=== PATIENT | male | born 1960 | race Caucasian/White ===

== ENCOUNTER 2018-04-13 19:31 | Emergency (ER) | payer BC, SELFPAY ==
[2018-04-13 20:15] LABS: #Eosinphils 0.1 thou/uL (0.0-0.7); #Lymphocytes 2.3 thou/uL (1.20-3.40); #Monocytes 0.5 thou/uL (0.11-0.59); #Neutrophils 2.8 thou/uL (1.40-6.50); %Basophils 0.7 % (0.0-1.0); %Eosinophils 1.5 % (0.0-10.0); %Monocytes 8.3 % (0.0-10.0); %Neutrophils 49.5 % (42.0-75.0); Mean Corpuscular HGB CONC 32.8 g/dL (32.0-36.0); Mean Corpuscular Hemoglobin 29.4 pg (27.0-31.0); Mean Corpuscular Volume 89.5 fL (78.0-98.0); Mean Platelet Volume 6.5 fL (7.4-10.4); Platelet Count 283 thou/uL (130-400); RBC Distribution Width 13.5 % (11.5-14.5); Red Blood Cell (RBC) Count 4.75 mill/uL (4.70-6.10); White Blood Cell (WBC) Count 5.7 thou/uL (4.8-10.8)
[2018-04-13 20:37] LABS: ALT (SGPT) 62 U/L (8-55); AST (SGOT) 68 U/L (5-34); Albumin 4.3 g/dL (3.5-5.0); Alkaline Phosphatase 107 U/L (40-150); Anion Gap 15 mmol/L (10-20); BUN (Urea Nitrogen) 8 mg/dL (8.4-25.7); Bilirubin, Total 0.4 mg/dL (0.2-1.2); CRP (Inflammatory) 0.51 mg/dL (= or < 0.5); Calc. Creatinine Clearance 0 mL/min (70-130); Calcium 10.3 mg/dL (7.8-10.44); Carbon Dioxide 26 mmol/L (22-29); Chloride 93 mmol/L (98-107); Estimated GFR-MDRD 89; Globulin 4.4 g/dL (2.4-3.5); Glucose 98 mg/dL (70-105); Potassium 3.6 mmol/L (3.5-5.1); Protein, Total 8.7 g/dL (6.0-8.3); Sodium 130 mmol/L (136-145)
[2018-04-13] MEDS ORDERED: Ketorolac Tromethamine 30 MG/ML VIAL ONE (21:04)
== END 2018-04-13 22:24 | disposition left against medical advice (07) ==
LOC: ERS 19:31
DX: M79.604 Pain in right leg (principal); F17.210 Nicotine dependence, cigarettes, uncomplicated
CPT/HCPCS: 36415; 80053; 84550; 85025; 85652; 86140; 87040; 96372; J1885

== ENCOUNTER 2018-05-12 02:45 | Emergency (ER) | payer BC, OTHER ==
[2018-05-12 03:24] LABS: #Basophils 0.1 thou/uL (0.0-0.2); #Eosinphils 0.1 thou/uL (0.0-0.7); #Lymphocytes 2.3 thou/uL (1.20-3.40); #Neutrophils 3.4 thou/uL (1.40-6.50); %Eosinophils 0.8 % (0.0-10.0); %Lymphocytes 33.6 % (21.0-51.0); %Monocytes 14.5 % (0.0-10.0); %Neutrophils 50.1 % (42.0-75.0); Hemoglobin 14.3 g/dL (14.0-18.0); Mean Corpuscular HGB CONC 34.3 g/dL (32.0-36.0); Mean Corpuscular Hemoglobin 29.9 pg (27.0-31.0); Mean Corpuscular Volume 87.2 fL (78.0-98.0); Platelet Count 243 thou/uL (130-400); RBC Distribution Width 13.5 % (11.5-14.5); Red Blood Cell (RBC) Count 4.78 mill/uL (4.70-6.10); White Blood Cell (WBC) Count 6.8 thou/uL (4.8-10.8)
[2018-05-12 03:46] LABS: ALT (SGPT) 116 U/L (8-55); AST (SGOT) 129 U/L (5-34); Albumin 4.2 g/dL (3.5-5.0); Alkaline Phosphatase 136 U/L (40-150); Anion Gap 16 mmol/L (10-20); BUN (Urea Nitrogen) 21 mg/dL (8.4-25.7); Bilirubin, Total 0.8 mg/dL (0.2-1.2); CRP (Inflammatory) 0.95 mg/dL (= or < 0.5); Calc. Creatinine Clearance 0 mL/min (70-130); Calcium 10.3 mg/dL (7.8-10.44); Carbon Dioxide 23 mmol/L (22-29); Chloride 101 mmol/L (98-107); Estimated GFR-MDRD 42; Globulin 4.5 g/dL (2.4-3.5); Glucose 92 mg/dL (70-105); Potassium 4.1 mmol/L (3.5-5.1); Protein, Total 8.7 g/dL (6.0-8.3); Sodium 136 mmol/L (136-145)
--- NOTE | 2018-05-12 07:50 | RAD ---
FXR Knee Rt 4 View STANDARD: 05/12/2018 3:24 AM CLINICAL INDICATION: Pain and edema COMPARISON: None. FINDINGS: Fracture:No acute fracture visualized Arthropathy:Prominent arthropathy is present. There are areas of heterotopic increased density about joint space prosthesis. Indwelling metallic screw is present at the distal femur. There is soft tissu e prominence and joint capsular distention. Incidental findings:Soft tissue calcification IMPRESSION: No discrete evidence of acute fracture Postoperative right knee, with heterotopic density, predominan tly confining to the bursa.
== END 2018-05-12 05:00 | disposition home or self-care (01) ==
LOC: ERS 02:45
DX: M25.561 Pain in right knee (principal); F17.210 Nicotine dependence, cigarettes, uncomplicated; Z87.442 Personal history of urinary calculi; Z79.899 Other long term (current) drug therapy
CPT/HCPCS: 36415; 80053; 85025; 85652; 86140

== ENCOUNTER 2018-05-27 00:29 | Emergency (ER) | payer OTHER ==
[2018-05-27 01:16] LABS: #Basophils 0.1 thou/uL (0.0-0.2); #Eosinphils 0.1 thou/uL (0.0-0.7); #Monocytes 0.6 thou/uL (0.11-0.59); #Neutrophils 3.1 thou/uL (1.40-6.50); %Eosinophils 2.2 % (0.0-10.0); %Lymphocytes 33.8 % (21.0-51.0); Hemoglobin 15.4 g/dL (14.0-18.0); Mean Corpuscular HGB CONC 34.2 g/dL (32.0-36.0); Mean Corpuscular Hemoglobin 29.4 pg (27.0-31.0); Mean Corpuscular Volume 85.9 fL (78.0-98.0); Mean Platelet Volume 7.2 fL (7.4-10.4); Platelet Count 216 thou/uL (130-400); RBC Distribution Width 13.4 % (11.5-14.5); Red Blood Cell (RBC) Count 5.24 mill/uL (4.70-6.10); White Blood Cell (WBC) Count 5.8 thou/uL (4.8-10.8)
[2018-05-27 01:36] LABS: Bilirubin Negative (Negative); Blood, Urine Negative (Negative); Clarity CLEAR (Clear); Glucose, Urine (Dipstick) Negative (Negative); Leukocyte Negative (Negative); Nitrite Negative (Negative); Protein, Urine (Dipstick) Negative (Neg-Trace); Specific Gravity, Urine 1.003 (1.002-1.036); Urobilinogen 0.2 mg/dL (0.2-1.0); pH, Urine 5.5 (5.0-9.0)
[2018-05-27 01:36] LABS: ALT (SGPT) 127 U/L (8-55); AST (SGOT) 132 U/L (5-34); Albumin 4.3 g/dL (3.5-5.0); Alkaline Phosphatase 132 U/L (40-150); Anion Gap 15 mmol/L (10-20); BUN (Urea Nitrogen) 15 mg/dL (8.4-25.7); Bilirubin, Total 0.4 mg/dL (0.2-1.2); CK (CPK) 47 U/L (30-200); Calc. Creatinine Clearance 0 mL/min (70-130); Calcium 10.1 mg/dL (7.8-10.44); Carbon Dioxide 23 mmol/L (22-29); Chloride 101 mmol/L (98-107); Estimated GFR-MDRD 86; Globulin 4.7 g/dL (2.4-3.5); Glucose 125 mg/dL (70-105); Potassium 4.3 mmol/L (3.5-5.1); Sodium 135 mmol/L (136-145)
[2018-05-27 01:50] LABS: Amphetamine Not Detected (NotDetected); Barbiturates Screen Not Detected (NotDetected); Benzodiazepine Screen Not Detected (NotDetected); Cocaine Metabolite Screen Not Detected (NotDetected); Medtox Control Line Valid? VALID (VALID); Medtox Reader # READER 4; Methadone Not Detected (NotDetected); Methamphetamine Not Detected (NotDetected); Opiate Screen Not Detected (NotDetected); Oxycodone Screen Not Detected (NotDetected); Phencyclidine (PCP) Not Detected (NotDetected); THC/Cannabinoid Screen Not Detected (NotDetected); Tricyclic Screen Not Detected (NotDetected)
--- NOTE | 2018-05-27 08:18 | CT ---
PRELIMINARY REPORT/[facility]/EMERGENCY AFTER HOURS PROCEDURE: EXAM: CT Head Without Contrast EXAM DATE/TIME: 05/27/2018 12:56 AM CLINICAL HISTORY: 58 years old, male; Pain; Headache not specified; Patient HX: [id number] presents to ED via EMS with C/O hea dache x4.5 hours associated with HTN. TECHNIQUE: Imaging protocol: Axial computed tomography images of the head/brain without contrast. COMPARISON: No relevant prior studies available. FINDINGS: Brain: No intracrainal hemorrhage. No midline shift. The brain parenchyma appears normal for age. Ventricles: No ventriculomegaly. Bones/joints: Unremarkable. No acute fracture. Sinuses: Visualized sinuses are unremarkable. No acute sinusitis. Mastoid air cells: Visualized mastoid air cells are unremarkable. No mastoid effusion. Soft tissues: Unremarkable. IMPRESSION: No acute intracranial abnormality. Thank you for allowing us to participate in the care of your patient. Dictated and Authenticated by: Juan Wilson MD 05/27/2018 1:10 AM Central Time ([place] & [place]) FINAL REPORT EMERGENCY AFTER HOURS CT BRAIN WITHOUT CONTRAST: FINDINGS/IMPRESSION: I agree with the above provided preliminary interpretation from [facility]. No acute intracranial hemorrhag e or mass effect.
== END 2018-05-27 02:07 | disposition home or self-care (01) ==
LOC: ERS 00:29
DX: I10 Essential (primary) hypertension (principal); F17.210 Nicotine dependence, cigarettes, uncomplicated; Z79.899 Other long term (current) drug therapy
CPT/HCPCS: 36415; 70450; 80053; 80306; 81003; 82550; 84484; 85025; 93005

== ENCOUNTER 2018-11-05 03:48 | Emergency (ER) | payer BC, MEDICAID, OTHER ==
[2018-11-05 04:42] LABS: #Basophils 0.1 thou/uL (0.0-0.2); #Eosinphils 0.2 thou/uL (0.0-0.7); #Lymphocytes 2.3 thou/uL (1.20-3.40); #Monocytes 0.6 thou/uL (0.11-0.59); #Neutrophils 3.3 thou/uL (1.40-6.50); %Basophils 0.9 % (0.0-1.0); %Eosinophils 2.4 % (0.0-10.0); %Lymphocytes 35.7 % (21.0-51.0); %Monocytes 9.3 % (0.0-10.0); %Neutrophils 51.7 % (42.0-75.0); Hemoglobin 14.2 g/dL (14.0-18.0); Mean Corpuscular HGB CONC 34.6 g/dL (32.0-36.0); Mean Corpuscular Hemoglobin 30.1 pg (27.0-31.0); Mean Platelet Volume 7.2 fL (7.4-10.4); Platelet Count 223 thou/uL (130-400); RBC Distribution Width 13.7 % (11.5-14.5); Red Blood Cell (RBC) Count 4.72 mill/uL (4.70-6.10); White Blood Cell (WBC) Count 6.4 thou/uL (4.8-10.8)
[2018-11-05 04:44] LABS: Bilirubin Negative (Negative); Blood, Urine Negative (Negative); Clarity Clear (Clear); Glucose, Urine (Dipstick) Normal (Negative); Leukocyte Negative Leu/uL (Negative); Nitrite Negative (Negative); Protein, Urine (Dipstick) Negative (Neg-Trace); Urobilinogen Normal mg/dL (Less than 2)
[2018-11-05 04:56] LABS: Amphetamine Not Detected (NotDetected); Barbiturates Screen Not Detected (NotDetected); Benzodiazepine Screen Not Detected (NotDetected); Cocaine Metabolite Screen Not Detected (NotDetected); Medtox Control Line Valid? VALID (VALID); Medtox Reader # READER 4; Methadone Not Detected (NotDetected); Methamphetamine Not Detected (NotDetected); Opiate Screen Not Detected (NotDetected); Oxycodone Screen Not Detected (NotDetected); Phencyclidine (PCP) Not Detected (NotDetected); THC/Cannabinoid Screen Not Detected (NotDetected); Tricyclic Screen Not Detected (NotDetected)
[2018-11-05 05:00] LABS: Acetaminophen Less than 6.0 mcg/mL (10.0-30.0); Alcohol 163 mg/dL (Less than 10); Salicylate Less than 8.0 mg/dL (15.0-30.0)
[2018-11-05 05:01] LABS: ALT (SGPT) 59 U/L (8-55); AST (SGOT) 63 U/L (5-34); Alkaline Phosphatase 99 U/L (40-110); Anion Gap 16 mmol/L (10-20); BUN (Urea Nitrogen) 8 mg/dL (8.4-25.7); Bilirubin, Total 0.3 mg/dL (0.2-1.2); CK (CPK) 51 U/L (30-200); Calc. Creatinine Clearance 0 mL/min (70-130); Calcium 9.7 mg/dL (7.8-10.44); Carbon Dioxide 22 mmol/L (22-29); Chloride 101 mmol/L (98-107); Estimated GFR-MDRD 82; Globulin 4.3 g/dL (2.4-3.5); Glucose 113 mg/dL (70-105); Potassium 3.7 mmol/L (3.5-5.1); Protein, Total 8.3 g/dL (6.0-8.3); Sodium 135 mmol/L (136-145)
[2018-11-05] MEDS ORDERED: Acetaminophen 500 MG TAB ONE (05:06)
[2018-11-05] MEDS ORDERED: Lisinopril 10 MG TAB PO SCH (07:45)
== END 2018-11-05 12:03 | disposition home or self-care (01) ==
LOC: ERS 03:48
DX: F10.129 Alcohol abuse with intoxication, unspecified (principal); G89.29 Other chronic pain; M25.569 Pain in unspecified knee; F17.210 Nicotine dependence, cigarettes, uncomplicated
CPT/HCPCS: 36415; 80053; 80306; 80307; 81003; 82550; 84443; 85025; 93005

== ENCOUNTER 2018-12-21 01:49 | Emergency (ER) | payer OTHER ==
[2018-12-21 02:19] LABS: #Basophils 0.1 thou/uL (0.0-0.2); #Eosinphils 0.1 thou/uL (0.0-0.7); #Lymphocytes 2.1 thou/uL (1.20-3.40); #Monocytes 0.8 thou/uL (0.11-0.59); #Neutrophils 4.1 thou/uL (1.40-6.50); %Basophils 0.9 % (0.0-1.0); %Eosinophils 1.8 % (0.0-10.0); %Lymphocytes 29.2 % (21.0-51.0); %Monocytes 11.7 % (0.0-10.0); %Neutrophils 56.4 % (42.0-75.0); Hemoglobin 12.8 g/dL (14.0-18.0); Mean Corpuscular HGB CONC 34.4 g/dL (32.0-36.0); Mean Corpuscular Hemoglobin 31.1 pg (27.0-31.0); Mean Corpuscular Volume 90.4 fL (78.0-98.0); Mean Platelet Volume 6.9 fL (7.4-10.4); Platelet Count 232 thou/uL (130-400); RBC Distribution Width 13.4 % (11.5-14.5); White Blood Cell (WBC) Count 7.3 thou/uL (4.8-10.8)
[2018-12-21 02:40] LABS: ALT (SGPT) 90 U/L (8-55); AST (SGOT) 76 U/L (5-34); Albumin 3.7 g/dL (3.5-5.0); Alkaline Phosphatase 100 U/L (40-110); Anion Gap 10 mmol/L (10-20); BUN (Urea Nitrogen) 13 mg/dL (8.4-25.7); Bilirubin, Total 0.6 mg/dL (0.2-1.2); Calc. Creatinine Clearance 0 mL/min (70-130); Calcium 9.5 mg/dL (7.8-10.44); Carbon Dioxide 27 mmol/L (22-29); Chloride 106 mmol/L (98-107); Estimated GFR-MDRD 85; Globulin 3.6 g/dL (2.4-3.5); Glucose 102 mg/dL (70-105); Lipase 41 U/L (8-78); Potassium 4.7 mmol/L (3.5-5.1); Protein, Total 7.3 g/dL (6.0-8.3); Sodium 138 mmol/L (136-145)
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
[2018-12-21] MEDS ORDERED: Iopamidol 370 76% 100 ML VIAL ONE (13:42)
== END 2018-12-21 03:42 | disposition home or self-care (01) ==
LOC: ERS 01:49
DX: K59.00 Constipation, unspecified (principal); I10 Essential (primary) hypertension; F17.210 Nicotine dependence, cigarettes, uncomplicated; Z79.899 Other long term (current) drug therapy
CPT/HCPCS: 36415; 74177; 80053; 83690; 85025; Q9967

== ENCOUNTER 2019-05-21 11:17 | Emergency (ER) | payer OTHER ==
[2019-05-21] MEDS ORDERED: Proparacaine 0.5% Opth 15 ML BOT ONE (11:45)
[2019-05-21] MEDS ORDERED: Fluorescein Opthalmic Strip ONE (11:45)
== END 2019-05-21 12:25 | disposition home or self-care (01) ==
LOC: ERS 11:17
DX: S40.862A Insect bite (nonvenomous) of left upper arm, initial encounter (principal); S40.861A Insect bite (nonvenomous) of right upper arm, initial encounter; S80.862A Insect bite (nonvenomous), left lower leg, initial encounter; S80.861A Insect bite (nonvenomous), right lower leg, initial encounter; S05.01XA Injury of conjunctiva and corneal abrasion without foreign body, right eye, initial encounter; I10 Essential (primary) hypertension; N40.0 Benign prostatic hyperplasia without lower urinary tract symptoms; F17.210 Nicotine dependence, cigarettes, uncomplicated; Z87.442 Personal history of urinary calculi; Z79.899 Other long term (current) drug therapy; W57.XXXA Bitten or stung by nonvenomous insect and other nonvenomous arthropods, initial encounter
CPT/HCPCS: 99282

== ENCOUNTER 2019-05-30 11:13 | Emergency (ER) | payer OTHER | END 2019-05-30 11:32 | disposition home or self-care (01) | LOC: ERS 11:13 | DX: B86 Scabies (principal); I10 Essential (primary) hypertension; F17.210 Nicotine dependence, cigarettes, uncomplicated | CPT/HCPCS: 99281 ==

== ENCOUNTER 2019-06-01 19:41 | Emergency (ER) | payer OTHER | END 2019-06-01 20:54 | LOC: ERS 19:41 | DX: S00.83XA Contusion of other part of head, initial encounter (principal); I10 Essential (primary) hypertension; F17.210 Nicotine dependence, cigarettes, uncomplicated; N40.0 Benign prostatic hyperplasia without lower urinary tract symptoms; Z87.442 Personal history of urinary calculi; Z79.899 Other long term (current) drug therapy; Y04.0XXA Assault by unarmed brawl or fight, initial encounter | CPT/HCPCS: 99283 ==

== ENCOUNTER 2019-07-31 13:32 | Emergency (ER) | payer OTHER ==
[2019-07-31] MEDS ORDERED: hydrOXYzine 25 MG TAB ONE (14:14)
[2019-07-31] MEDS ORDERED: predniSONE 20 MG TAB ONE (14:14)
== END 2019-07-31 14:30 ==
LOC: ERS 13:32
DX: L29.9 Pruritus, unspecified (principal); I10 Essential (primary) hypertension; N40.0 Benign prostatic hyperplasia without lower urinary tract symptoms; F17.210 Nicotine dependence, cigarettes, uncomplicated; Z79.899 Other long term (current) drug therapy; Z87.442 Personal history of urinary calculi
CPT/HCPCS: 99283; J7512

== ENCOUNTER 2019-08-19 23:09 | Inpatient (IN) | payer OTHER ==
[2019-08-20 00:38] LABS: Bilirubin Negative (Negative); Blood, Urine Negative (Negative); Clarity Clear (Clear); Glucose, Urine (Dipstick) Greater than 1000 mg/dL (Negative); Ketone, Urine 20 mg/dL (Negative); Leukocyte Negative Leu/uL (Negative); Nitrite Negative (Negative); Protein, Urine (Dipstick) Negative (Neg-Trace); Urobilinogen Normal mg/dL (Less than 2)
[2019-08-20 00:49] LABS: #Monocytes 0.5 thou/uL (0.11-0.59); #Neutrophils 4.4 thou/uL (1.40-6.50); %Basophils 0.2 % (0.0-1.0); %Eosinophils 0.4 % (0.0-10.0); %Lymphocytes 29.1 % (21.0-51.0); %Monocytes 7.1 % (0.0-10.0); %Neutrophils 63.2 % (42.0-75.0); Mean Corpuscular HGB CONC 35.4 g/dL (32.0-36.0); Mean Corpuscular Hemoglobin 29.4 pg (27.0-31.0); Mean Corpuscular Volume 83.1 fL (78.0-98.0); Mean Platelet Volume 8.1 fL (7.4-10.4); Platelet Count 196 thou/uL (130-400); RBC Distribution Width 11.7 % (11.5-14.5); Red Blood Cell (RBC) Count 5.09 mill/uL (4.70-6.10)
[2019-08-20 01:32] LABS: ALT (SGPT) 187 U/L (8-55); AST (SGOT) 79 U/L (5-34); Albumin 3.7 g/dL (3.5-5.0); Alkaline Phosphatase 179 U/L (40-110); Anion Gap 20 mmol/L (10-20); BUN (Urea Nitrogen) 26 mg/dL (8.4-25.7); Bilirubin, Total 0.4 mg/dL (0.2-1.2); Calc. Creatinine Clearance 0 mL/min (70-130); Calcium 9.7 mg/dL (7.8-10.44); Carbon Dioxide 20 mmol/L (22-29); Chloride 87 mmol/L (98-107); Estimated GFR-MDRD 47; Globulin 3.3 g/dL (2.4-3.5); Magnesium 1.6 mg/dL (1.6-2.6); Potassium 4.7 mmol/L (3.5-5.1); Sodium 122 mmol/L (136-145)
[2019-08-20 01:38] LABS: Glucose 762 mg/dL (70-105)
[2019-08-20] MEDS ORDERED: Insulin Regular 100 units/100 ml in NS IVPB SCH (01:45)
[2019-08-20] MEDS ORDERED: Insulin Regular 300 UNITS/3 ML VIAL ONE ×2 (02:06→02:22)
[2019-08-20] MEDS ORDERED: Fluconazole 100 MG TAB PO SCH (02:30)
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
[2019-08-20] MEDS ORDERED: Electrolyte Replacement Protocol IVPB SCH (03:50)
[2019-08-20] MEDS ORDERED: Dextrose 5 %-0.45 % NaCl 1,000 ML IV PRN (03:50)
[2019-08-20] MEDS ORDERED: Sodium Chloride 0.9% 1,000 ML IV PRN ×4 (03:50)
[2019-08-20] MEDS ORDERED: D5 1/2 NS w/20 mEq KCL 1,000 ML IV PRN (03:50)
[2019-08-20] MEDS ORDERED: HUMULIN R 100 UNITS in Sodium Chloride 0.9% 100 ML IVPB SCH (03:50)
[2019-08-20] MEDS ORDERED: Ondansetron PF 4 MG/2 ML Vial IVP PRN (03:50)
[2019-08-20] MEDS ORDERED: NS 0.9% w/ 20 MEQ KCL 1,000 ML IV PRN ×2 (03:50)
[2019-08-20] MEDS ORDERED: Acetaminophen 325 MG TAB PO PRN (03:50)
[2019-08-20] MEDS ORDERED: Ondansetron ODT 4 MG TAB PO PRN (03:50)
[2019-08-20 03:54] VITALS: BMI 24.8
[2019-08-20 04:40] LABS: Anion Gap 14 mmol/L (10-20); BUN (Urea Nitrogen) 19 mg/dL (8.4-25.7); Calc. Creatinine Clearance 81 mL/min (70-130); Calcium 9.6 mg/dL (7.8-10.44); Carbon Dioxide 23 mmol/L (22-29); Chloride 98 mmol/L (98-107); Estimated GFR-MDRD 77; Glucose 203 mg/dL (70-105); Potassium 3.7 mmol/L (3.5-5.1); Sodium 131 mmol/L (136-145)
[2019-08-20] MEDS: Sodium Chloride 0.9% 1,000 ML IV SCH ×2 (05:50→13:16)
[2019-08-20] MEDS ORDERED: Insulin Glargine 18 UNITS in Pre-Filled Syringe 1 EACH SC SCH (06:00)
[2019-08-20 06:20] LABS: Hemoglobin A1c 13.2 % (4.0-6.0)
[2019-08-20] MEDS ORDERED: Ibuprofen 600 MG TAB PO PRN (06:30)
[2019-08-20] MEDS ORDERED: Magnesium 2 GM/50 ML 2 GM in Premix Bag 1 BAG IVPB SCH (06:30)
[2019-08-20] MEDS: Nicotine 14 MG PATCH TD SCH (06:35)
[2019-08-20 07:54] LABS: #Eosinphils 0.1 thou/uL (0.0-0.7); #Lymphocytes 2.6 thou/uL (1.20-3.40); #Monocytes 0.5 thou/uL (0.11-0.59); #Neutrophils 3.6 thou/uL (1.40-6.50); %Basophils 0.5 % (0.0-1.0); %Eosinophils 1.3 % (0.0-10.0); %Lymphocytes 37.7 % (21.0-51.0); %Monocytes 7.4 % (0.0-10.0); %Neutrophils 53.1 % (42.0-75.0); Hemoglobin 13.4 g/dL (14.0-18.0); Mean Corpuscular HGB CONC 34.3 g/dL (32.0-36.0); Mean Corpuscular Hemoglobin 28.8 pg (27.0-31.0); Mean Corpuscular Volume 83.8 fL (78.0-98.0); Mean Platelet Volume 7.5 fL (7.4-10.4); Platelet Count 163 thou/uL (130-400); RBC Distribution Width 11.6 % (11.5-14.5); Red Blood Cell (RBC) Count 4.64 mill/uL (4.70-6.10); White Blood Cell (WBC) Count 6.8 thou/uL (4.8-10.8)
[2019-08-20 08:13] LABS: Anion Gap 10 mmol/L (10-20); BUN (Urea Nitrogen) 15 mg/dL (8.4-25.7); Calc. Creatinine Clearance 100 mL/min (70-130); Calcium 8.8 mg/dL (7.8-10.44); Carbon Dioxide 26 mmol/L (22-29); Chloride 100 mmol/L (98-107); Estimated GFR-MDRD Greater than 90; Glucose 132 mg/dL (70-105); Sodium 132 mmol/L (136-145)
--- NOTE | 2019-08-20 08:24 | RAD ---
RADIOGRAPH CHEST 1 VIEW: DATE: 08/20/2019 HISTORY: 59-year-old male with cough FINDINGS: There are no airspace densities, pulmonary edema, pneumothorax, or cardiomegaly. The lateral costophr enic angles are sharp. IMPRESSION: No acute cardiopulmonary findings.
[2019-08-20 08:33] LABS: Syphilis Antibody Nonreactive (Nonreactive); Syphilis Antibody Index 0.02 S/CO (<1.00 Non-Reactive)
[2019-08-20 08:34] LABS: HIV (1/2) Antibody/Antigen Non-Reactive (NonReactive); HIV 1/2 INDEX 0.12 S/CO (<1.00)
[2019-08-20] MEDS: Enoxaparin Sodium 40 MG/0.4 ML SYRINGE SC SCH (09:12)
[2019-08-20] MEDS: Famotidine/PF 20 mg/2ml Vial SLOW IVP SCH ×2 (09:12→21:23)
[2019-08-20 12:29] LABS: Anion Gap 12 mmol/L (10-20); BUN (Urea Nitrogen) 12 mg/dL (8.4-25.7); Calc. Creatinine Clearance 85 mL/min (70-130); Carbon Dioxide 24 mmol/L (22-29); Chloride 100 mmol/L (98-107); Estimated GFR-MDRD 82; Glucose 255 mg/dL (70-105); Potassium 4.4 mmol/L (3.5-5.1); Sodium 132 mmol/L (136-145)
[2019-08-20] MEDS ORDERED: HumaLOG 300 UNITS/3 ML VIAL SC PRN (12:48)
[2019-08-20] MEDS ORDERED: Dextrose 5% in Water 1,000 ML IV PRN (12:48)
[2019-08-20] MEDS ORDERED: Dextrose 50% Abboject 50 ML SYRINGE SLOW IVP PRN (12:48)
[2019-08-20] MEDS: Famotidine 20 MG TAB PO SCH ×2 (12:55→21:23)
[2019-08-20] MEDS: Terbinafine 1% 30 GM TUBE TOP SCH ×2 (13:13→21:23)
[2019-08-20] MEDS: HumaLOG 300 UNITS/3 ML VIAL SC PRN ×2 (14:52→17:41)
[2019-08-20 16:28] LABS: Anion Gap 10 mmol/L (10-20); BUN (Urea Nitrogen) 14 mg/dL (8.4-25.7); Calc. Creatinine Clearance 90 mL/min (70-130); Calcium 8.6 mg/dL (7.8-10.44); Carbon Dioxide 24 mmol/L (22-29); Chloride 102 mmol/L (98-107); Estimated GFR-MDRD 87; Glucose 274 mg/dL (70-105); Sodium 132 mmol/L (136-145)
[2019-08-20] MEDS ORDERED: Prevnar 13-Val Conj/PF 0.5 ML SYRINGE IM ONE (21:00)
[2019-08-21] MEDS: Nicotine 14 MG PATCH TD SCH (05:23)
[2019-08-21 06:28] LABS: ALT (SGPT) 178 U/L (8-55); AST (SGOT) 116 U/L (5-34); Albumin 3.5 g/dL (3.5-5.0); Alkaline Phosphatase 92 U/L (40-110); Anion Gap 12 mmol/L (10-20); BUN (Urea Nitrogen) 13 mg/dL (8.4-25.7); Bilirubin, Total 0.5 mg/dL (0.2-1.2); Calc. Creatinine Clearance 78 mL/min (70-130); Calcium 9.4 mg/dL (7.8-10.44); Carbon Dioxide 28 mmol/L (22-29); Chloride 99 mmol/L (98-107); Estimated GFR-MDRD 74; Glucose 277 mg/dL (70-105); Potassium 4.7 mmol/L (3.5-5.1); Protein, Total 6.5 g/dL (6.0-8.3); Sodium 134 mmol/L (136-145)
[2019-08-21] MEDS: HumaLOG 300 UNITS/3 ML VIAL SC PRN ×4 (06:35→20:30)
--- NOTE | 2019-08-21 08:46 | PDOC.FM ---
- Subjective Subjective: No acute overnight events. Pt c/o burning rash on his penis and scrotum. Otherwise no new complaints today. Denies chest pain, SOB, headache, abdominal pain, N/V/D, constipation, edema. - Objective Vital Signs & Weight: Vital Signs (12 hours) Temp Pulse Resp BP BP Pulse Ox 08/21/19 07:32 98.4 F 82 16 129/83 97 08/21/19 03:48 98.7 F 74 16 139/88 97 08/20/19 23:48 98.3 F 81 16 141/85 H 97 Weight Weight 71.985 kg Most Recent Monitor Data Heart Rate from ECG 88 NIBP 122/89 NIBP BP-Mean 100 Respiration from ECG 25 SpO2 96 I&O: 08/20/19 08/21/19 08/22/19 06:59 06:59 06:59 Intake Total 1802 2040 Output Total 225 3500 Balance 1577 -1460 Result Diagrams: 08/20/19 07:42 08/21/19 05:47 Phys Exam - Physical Examination Constitutional: NAD HEENT: moist MMs poor dentition Respiratory: no wheezing, no rales, no rhonchi, clear to auscultation bilateral Cardiovascular: RRR, no significant murmur Gastrointestinal: soft, non-tender, no distention, positive bowel sounds Musculoskeletal: no edema, pulses present Neurological: moves all 4 limbs Psychiatric: normal affect Deviation from normal: Erythematous, macular rash bilateral toes, groin, scrotum ; papular on back Dx/Plan (1) Acute kidney injury Code(s): N17.9 - ACUTE KIDNEY FAILURE, UNSPECIFIED Status: Acute (2) Diabetes mellitus with ketoacidosis Code(s): E11.10 - TYPE 2 DIABETES MELLITUS WITH KETOACIDOSIS WITHOUT COMA Status: Acute (3) Folliculitis Code(s): L73.9 - FOLLICULAR DISORDER, UNSPECIFIED Status: Acute (4) Hypertension Code(s): I10 - ESSENTIAL (PRIMARY) HYPERTENSION Status: Acute (5) Tinea cruris Code(s): B35.6 - TINEA CRURIS Status: Acute - Plan Plan: New onset Diabetes Mellitus with DKA - Initial glucose >700, betahydroxybutarate: 3.13, Serum osmo: 305, anion gap: 15. Initial tx: Received 10u Novolog and started on insulin drip at 0.1u/kg/hr - s/p DKA protocol, transitioned to subcutaneous insulin yesterday, lantus 18U - glucose 158 this AM, required 4 units SSI in past 24 - will increase lantus to 22U - continue to monitor blood glucose and adjust insulin regimen accordingly Tinea Cruris, Tinea Pedis - Likely not controlled with topicals due to uncontrolled glucose - Topical lamisil - Due to severity of infection, will give second dose fluconazole 150mg once on 08/21 LENI, improving - Initial Cr 1.51, down to 0.89 this AM - likely 2/2 volume depletion - continue to monitor Cr with AM labs HTN - Previously diagnosed - Pt refusing to treat in assisted - Unknown previous rx - Will monitor and initiate anti-hypertensives as indicated Hx of Hep C - Previously diagnosed - Liver function consistent w/ diagnosis - No acute decompensation VTE: Lovenox IVF: Per protocol Diet: CC Code: Full Dispo: Incarcerated, to return after DKA is resolved. Addendum - Attending - Attending Attestation Date/Time: 08/21/19 3785 I personally evaluated the patient and discussed the management with Dr. Marie. I agree with the History, Examination, Assessment and Plan documented above with any addition or exceptions noted below. Repeat diflucan dose today. If no significant improvement tomorrow, will consider 7-14 day course. Continue patient education regarding DM2. Likely d/c in next 1-2 days. Continue to titrate insulin and provide patient education regarding disease management.
[2019-08-21] MEDS ORDERED: Insulin Glargine 22 UNITS in Pre-Filled Syringe 1 EACH SC SCH (09:00)
[2019-08-21] MEDS ORDERED: Insulin Glargine 18 UNITS in Pre-Filled Syringe 1 EACH SC SCH (09:00)
[2019-08-21] MEDS: Enoxaparin Sodium 40 MG/0.4 ML SYRINGE SC SCH (09:14)
[2019-08-21] MEDS: Famotidine 20 MG TAB PO SCH ×3 (09:15→20:31)
[2019-08-21] MEDS: Terbinafine 1% 30 GM TUBE TOP SCH ×2 (09:18→20:31)
[2019-08-21] MEDS: Famotidine/PF 20 mg/2ml Vial SLOW IVP SCH ×2 (09:19→20:28)
[2019-08-21 10:20] LABS: Base Excess-Venous -1.5 mmol/L (-2.0 to 3.0); CO2 Tension (PvCO2) 42.3 mmHg (40.0-50.0); Hemoglobin - Calc 15.9 g/dL (14.0-18.0); vO2 Saturation-calc 81.4 % (60.0-85.0)
[2019-08-21 10:21] LABS: Calcium, Ionized 1.16 mmol/L (See Comments:); Chloride 89 mmol/L (98-107); Potassium 5.1 mmol/L (3.5-5.1); Sodium 122 mmol/L (138-145); T. Carbon Dioxide 25.3 mmol/L (22.0-28.0)
[2019-08-22] MEDS: HumaLOG 300 UNITS/3 ML VIAL SC PRN ×4 (02:46→12:50)
--- NOTE | 2019-08-22 05:21 | PDOC.FM ---
- Subjective Subjective: Pt woke up around 0230 feeling sweaty, upon glucose check BS was 476. 5U SSI was administered, glucose 271 this AM. Pt did eat a lunchbox last night around midnight, in addition to his CC dinner. States his rash has been improving some with lamisil. He also c/o some constipation, last BM 2 days ago. Denies chest pain, SOB, dysuria, abdominal pain, headache. - Objective Vital Signs & Weight: Vital Signs (12 hours) Temp Pulse Resp BP Pulse Ox 08/21/19 20:00 98.4 F 83 16 127/77 96 Weight Weight 71.985 kg Most Recent Monitor Data Heart Rate from ECG 88 NIBP 122/89 NIBP BP-Mean 100 Respiration from ECG 25 SpO2 96 I&O: 08/20/19 08/21/19 08/22/19 06:59 06:59 06:59 Intake Total 1802 2040 1920 Output Total 225 3500 2150 Balance 1577 -1460 -230 Result Diagrams: 08/20/19 07:42 08/22/19 07:00 Phys Exam - Physical Examination Constitutional: NAD HEENT: moist MMs Neck: supple Respiratory: no wheezing, no rales, no rhonchi, clear to auscultation bilateral Cardiovascular: RRR, no significant murmur, no rub Gastrointestinal: soft, non-tender, no distention, positive bowel sounds Musculoskeletal: no edema, pulses present Neurological: moves all 4 limbs Psychiatric: normal affect Dx/Plan (1) Acute kidney injury Code(s): N17.9 - ACUTE KIDNEY FAILURE, UNSPECIFIED Status: Acute (2) Diabetes mellitus with ketoacidosis Code(s): E11.10 - TYPE 2 DIABETES MELLITUS WITH KETOACIDOSIS WITHOUT COMA Status: Acute (3) Folliculitis Code(s): L73.9 - FOLLICULAR DISORDER, UNSPECIFIED Status: Acute (4) Hypertension Code(s): I10 - ESSENTIAL (PRIMARY) HYPERTENSION Status: Acute (5) Tinea cruris Code(s): B35.6 - TINEA CRURIS Status: Acute - Plan Plan: New onset Diabetes Mellitus with DKA - Initial glucose >700, betahydroxybutarate: 3.13, Serum osmo: 305, anion gap: 15. Initial tx: Received 10u Novolog and started on insulin drip at 0.1u/kg/hr - s/p DKA protocol, transitioned to subcutaneous insulin, lantus 18U - glucose 476 early this AM, total 7U SSI in last 12 hours - will increase lantus to 29U and add 5 units novolin before meals - continue to monitor blood glucose and adjust insulin regimen accordingly Tinea Cruris, Tinea Pedis - Likely not controlled with topicals due to uncontrolled glucose - Topical lamisil - Due to severity of infection, will give second dose fluconazole 150mg once on 08/21 Constipation Likely 2/2 decreased activity - will add stool softener LENI, resolved - Initial Cr 1.51, now improved - likely 2/2 volume depletion - continue to monitor Cr with AM labs HTN - Previously diagnosed, has been controlled here without antihypertensives - Pt refusing to treat in retirement - Unknown previous rx - Will continue to monitor and initiate anti-hypertensives as indicated Hx of Hep C - Previously diagnosed - Liver function consistent w/ diagnosis - No acute decompensation - Continue to monitor liver function with fluconazole - Recommend treatment upon discharge VTE: Lovenox IVF: Per protocol Diet: CC Code: Full Dispo: Incarcerated, to return after DKA is resolved. Addendum - Attending - Attending Attestation Date/Time: 08/22/19 [id number] I personally evaluated the patient and discussed the management with Dr. Marie I agree with the History, Examination, Assessment and Plan documented above with any addition or exceptions noted below. D/C to group home today. Continue outpatient insulin titration. 2 week clotrimazole cream for tinea corpus
[2019-08-22] MEDS: Nicotine 14 MG PATCH TD SCH (05:53)
[2019-08-22 07:49] LABS: ALT (SGPT) 169 U/L (8-55); AST (SGOT) 107 U/L (5-34); Albumin 3.4 g/dL (3.5-5.0); Alkaline Phosphatase 77 U/L (40-110); Anion Gap 12 mmol/L (10-20); BUN (Urea Nitrogen) 13 mg/dL (8.4-25.7); Bilirubin, Total 0.4 mg/dL (0.2-1.2); Calc. Creatinine Clearance 78 mL/min (70-130); Calcium 9.4 mg/dL (7.8-10.44); Carbon Dioxide 26 mmol/L (22-29); Chloride 101 mmol/L (98-107); Estimated GFR-MDRD 74; Globulin 3.1 g/dL (2.4-3.5); Glucose 186 mg/dL (70-105); Potassium 4.5 mmol/L (3.5-5.1); Protein, Total 6.5 g/dL (6.0-8.3); Sodium 134 mmol/L (136-145)
[2019-08-22 07:51] VITALS: BP 131/92; TEMP 98.7
[2019-08-22] MEDS: Terbinafine 1% 30 GM TUBE TOP SCH (08:13)
[2019-08-22] MEDS ORDERED: Insulin Glargine 29 UNITS in Pre-Filled Syringe 1 EACH SC SCH (09:00)
[2019-08-22] MEDS ORDERED: Fluconazole 100 MG TAB PO SCH ×2 (09:00→09:45)
[2019-08-22] MEDS ORDERED: Senokot S 8.6-50 MG TAB PO SCH (09:00)
[2019-08-22] MEDS: Enoxaparin Sodium 40 MG/0.4 ML SYRINGE SC SCH (09:28)
[2019-08-22] MEDS: HumaLOG 300 UNITS/3 ML VIAL SC SCH ×2 (12:50→18:16)
--- NOTE | 2019-08-23 03:11 | DIS ---
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 PROCEDURES: None. PRIMARY DIAGNOSIS: Diabetic ketoacidosis as presentation of new onset diabetes. SECONDARY DIAGNOSES: 1. Acute kidney injury. 2. Tinea cruris. 3. Tinea pedis. 4. Hepatitis C, untreated. 5. History of hypertension. DISCHARGE MEDICATIONS: 1. Lantus 29 units every morning. 2. Humalog 5 units before meals. 3. Terbinafine cream. DISCONTINUED MEDICATIONS: None. HOSPITAL COURSE: This 59-year-old male, with past medical history of hepatitis C and hypertension, presented to the ED from half-way, complaining of worsening rash to his genitals for over 1 month. Subsequent history revealed excessive thirst and urination that have been ongoing for quite sometime. ED workup revealed diabetic ketoacidosis with a blood glucose of over 700s. Beta hydroxybutyrate of 3.12, serum osmolality of 305, and an anion gap of 15. He received a 2 L normal saline bolus and was he was started on the DKA protocol and admitted to the [facility]. He was able to transition to subcutaneous insulin and transferred to the floor before the next morning. He was started on Lantus at 18 units in the morning and was titrated up to Lantus 29 units each morning in addition to 5 units of Humalog with each meal. His hemoglobin A1c is 13.2% in this admission. This is a new diagnosis of diabetes mellitus for him. Additionally, he had an acute kidney injury, which resolved after IV fluid administration. Upon admission, he had fairly severe tinea cruris, tinea corporis, and tinea pedis, which were treated with 2 oral doses of fluconazole in addition to topical terbinafine. His chronic problems remained stable this admission. He did not require any antihypertensives and he had a mild stable transaminitis throughout his admission. Patient is stable upon discharge. He does need close followup of his new onset diabetes, particularly management of his insulin. Lantus and Humalog are new medications for him. He has been instructed to titrate his Lantus by 2 units every other day until his fasting glucose is less than 180. He would also benefit from followup of his tinea infection, which may require ongoing topical treatment and outpatient treatment of his hepatitis C. DISPOSITION: Stable. DISCHARGE INSTRUCTIONS: Location: Residential. Diet: Carb consistent diabetic diet. Activity: As tolerated. Followup: He needs to establish primary care with the half-way provider as soon as possible. Job ID: [id number]
== END 2019-08-22 18:37 | DRG 638 ==
LOC: ERS 23:09 → IMCU/EMU 08-20 02:03 → ONC 08-20 19:21
PROVIDERS: ADMIT Student in an Organized Health Care Education/Training Program; ATTEND Student in an Organized Health Care Education/Training Program
DX: E11.10 Type 2 diabetes mellitus with ketoacidosis without coma (principal); N17.9 Acute kidney failure, unspecified; F17.290 Nicotine dependence, other tobacco product, uncomplicated; B35.6 Tinea cruris; B35.3 Tinea pedis; L73.9 Follicular disorder, unspecified; B18.2 Chronic viral hepatitis C; I10 Essential (primary) hypertension; N40.0 Benign prostatic hyperplasia without lower urinary tract symptoms; N20.0 Calculus of kidney; Z96.651 Presence of right artificial knee joint; K59.00 Constipation, unspecified; Z90.49 Acquired absence of other specified parts of digestive tract; Z79.899 Other long term (current) drug therapy; Z79.52 Long term (current) use of systemic steroids; B35.4 Tinea corporis
CPT/HCPCS: 36415; 36416; 71045; 80053; 81003; 82010; 82330; 82803; 83036; 83735; 83930; 84100; 84484; 85014; 85025; 86780; 87389; 90471; 90670; 93005; 96361; 96365; 96376; G0009; J1650; J1815; J3475; J3480; J3490; S0028

== ENCOUNTER 2020-02-01 13:08 | Emergency (ER) | payer OTHER ==
[2020-02-01] MEDS ORDERED: Acetaminophen 500 MG TAB ONE (14:40)
[2020-02-01] MEDS ORDERED: Morphine 4 MG/ML VIAL ONE ×2 (14:40→16:53)
[2020-02-01 14:44] LABS: #Basophils 0.1 thou/uL (0.0-0.2); #Eosinphils 0.1 thou/uL (0.0-0.7); #Lymphocytes 2.5 thou/uL (1.20-3.40); #Monocytes 0.7 thou/uL (0.11-0.59); #Neutrophils 4.2 thou/uL (1.40-6.50); %Basophils 1.7 % (0.0-1.0); %Eosinophils 1.6 % (0.0-10.0); %Lymphocytes 32.4 % (21.0-51.0); %Monocytes 9.3 % (0.0-10.0); Hemoglobin 15.9 g/dL (14.0-18.0); Mean Corpuscular HGB CONC 33.9 g/dL (32.0-36.0); Mean Corpuscular Hemoglobin 29.1 pg (27.0-31.0); Mean Corpuscular Volume 85.7 fL (78.0-98.0); Mean Platelet Volume 6.6 fL (7.4-10.4); Platelet Count 228 thou/uL (130-400); RBC Distribution Width 12.9 % (11.5-14.5); Red Blood Cell (RBC) Count 5.46 mill/uL (4.70-6.10); White Blood Cell (WBC) Count 7.6 thou/uL (4.8-10.8)
[2020-02-01 15:06] LABS: ALT (SGPT) 41 U/L (8-55); AST (SGOT) 25 U/L (5-34); Albumin 4.2 g/dL (3.4-4.8); Alkaline Phosphatase 88 U/L (40-110); Anion Gap 15 mmol/L (10-20); BUN (Urea Nitrogen) 10 mg/dL (8.4-25.7); Bilirubin, Total 0.7 mg/dL (0.2-1.2); Calc. Creatinine Clearance 0 mL/min (70-130); Calcium 9.9 mg/dL (7.8-10.44); Carbon Dioxide 28 mmol/L (23-31); Chloride 102 mmol/L (98-107); Globulin 4.2 g/dL (2.4-3.5); Glucose 103 mg/dL (80-115); Lipase 21 U/L (8-78); Potassium 4.6 mmol/L (3.5-5.1); Protein, Total 8.4 g/dL (5.8-8.1); Sodium 140 mmol/L (136-145)
--- NOTE | 2020-02-01 15:25 | RAD ---
EXAM: CHEST ONE VIEW PORTABLE: 02/01/20 HISTORY: Chest pain, fever, headache, abdominal pain, decreased appetite. COMPARISON: 08/20/19. FINDINGS: Decreased inspiration. Minimal vascular crowding with some increased linear and interstitial markings in the bases. Heart size is within normal limits. No confluent pneumonia, overt edema, or pleural ef fusion. IMPRESSION: Decreased inspiration with some vascular crowding and minimal increased markings but no evidence for acute pneumonia, edema, pleural effusion or other acute process. POS: [facility]
--- NOTE | 2020-02-01 16:49 | CT ---
CT ABDOMEN WITH CONTRAST CT PELVIS WITH CONTRAST: DATE: 02/01/2020 HISTORY: 60-year-old male with diffuse abdominal pain, fever, and anorexia COMPARISON: 12/21/2018 TECHNIQUE: IV injection of iodinated contrast media: administered. Oral contrast media:Not administered FINDINGS: Gallbladder is distended, but there is no pericholecystic fluid. No calcified gallstone identified. At the fundus of the gallbladder, there is a new finding of an approximately 2 x 1.5 x 1.5 cm irregul sriram shaped soft tissue density lesion broadly based at the wall of the gallbladder, protruding into the lumen. The rest of the gallbladder wall thickness is normal. There is no dilation of the common bile duct or intrahepatic bile ducts. No portal vein thrombosis, h epatomegaly, solid hepatic mass, or hepatic cyst. The spleen, pancreas, right kidney, and adrenals, are essentially normal. There are at least 4 left renal calculi. The smallest is approximately 1 or 2 mm. The largest is at t he lower pole, measuring approximately 6 x 6 x 5 mm, unchanged since last year. No evidence of pyelonephritis or hydronephrosis. No abdominal aortic aneurysm. Nonspecific diffuse mural thickening of urinary bladder, but that could be due to incomplete distenti on. No colonic diverticulitis, small bowel dilation, ascites, pneumoperitoneum, pleural effusion, or basi lar consolidation. IMPRESSION: 1) distended gallbladder. 2) otherwise no acute findings. 3) new small focal soft tissue density mass at fundus of the gallbladder. This raises the possibility of gallbladder carcinoma. General surgery consultation on an elective, nonemergent basis is recommended. 4) left nephrolithiasis without obstructive uropathy.
[2020-02-01 17:27] LABS: Bilirubin Negative (Negative); Blood, Urine Negative (Negative); Clarity Clear (Clear); Glucose, Urine (Dipstick) Normal (Negative); Ketone, Urine Negative (Negative); Leukocyte Negative Leu/uL (Negative); Nitrite Negative (Negative); Protein, Urine (Dipstick) 10 mg/dL (Neg-Trace); Specific Gravity, Urine 1.027 (1.002-1.036); pH, Urine 5.5 (5.0-9.0)
[2020-02-01 23:29] LABS: SARS-CoV-2 MS2 Positive; SARS-CoV-2 N Gene Negative; SARS-CoV-2 S Gene Negative; SARS-CoV-2 by NAA Not Detected (NotDetected); SARS-CoV-2 orf1ab Negative
== END 2020-02-01 18:35 ==
LOC: ERS 13:08
DX: R10.84 Generalized abdominal pain (principal); R50.9 Fever, unspecified; R06.02 Shortness of breath; R07.9 Chest pain, unspecified; I10 Essential (primary) hypertension; N40.0 Benign prostatic hyperplasia without lower urinary tract symptoms; E11.9 Type 2 diabetes mellitus without complications; F17.210 Nicotine dependence, cigarettes, uncomplicated; Z79.4 Long term (current) use of insulin; Z79.899 Other long term (current) drug therapy
CPT/HCPCS: 36415; 71045; 74177; 80053; 81003; 83690; 84484; 85025; 87635; 93005; 96374; 96376; J2270; U0003

== ENCOUNTER 2020-02-28 01:44 | Emergency (ER) | payer OTHER ==
[2020-02-28] MEDS ORDERED: Ketorolac Tromethamine 30 MG/ML VIAL ONE (02:29)
--- NOTE | 2020-02-28 07:52 | RAD ---
Exam:3 views left hand HISTORY: Difficulty breathing. COMPARISON: None FINDINGS: Marked dorsal soft tissue swelling. No radiopaque foreign body. Joint spaces are preserved. No fracture. IMPRESSION: Soft tissue swelling as above.
== END 2020-02-28 03:02 ==
LOC: EEVIPCON 01:44 → ERS 01:44
DX: S60.222A Contusion of left hand, initial encounter (principal); E11.9 Type 2 diabetes mellitus without complications; I10 Essential (primary) hypertension; N40.0 Benign prostatic hyperplasia without lower urinary tract symptoms; F17.290 Nicotine dependence, other tobacco product, uncomplicated; Z79.4 Long term (current) use of insulin; Z79.899 Other long term (current) drug therapy; W01.0XXA Fall on same level from slipping, tripping and stumbling without subsequent striking against object, initial encounter
CPT/HCPCS: 96372; J1885

== ENCOUNTER 2020-03-01 01:48 | Emergency (ER) | payer OTHER ==
[2020-03-01 03:00] LABS: #Basophils 0.1 thou/uL (0.0-0.2); #Eosinphils 0.1 thou/uL (0.0-0.7); #Lymphocytes 2.3 thou/uL (1.20-3.40); #Monocytes 0.5 thou/uL (0.11-0.59); #Neutrophils 4.4 thou/uL (1.40-6.50); %Basophils 0.8 % (0.0-1.0); %Eosinophils 1.8 % (0.0-10.0); %Lymphocytes 31.3 % (21.0-51.0); %Monocytes 6.5 % (0.0-10.0); %Neutrophils 59.7 % (42.0-75.0); Hemoglobin 13.9 g/dL (14.0-18.0); Mean Corpuscular HGB CONC 34.2 g/dL (32.0-36.0); Mean Corpuscular Hemoglobin 29.5 pg (27.0-31.0); Mean Corpuscular Volume 86.2 fL (78.0-98.0); Mean Platelet Volume 6.6 fL (7.4-10.4); Platelet Count 231 thou/uL (130-400); RBC Distribution Width 13.4 % (11.5-14.5); Red Blood Cell (RBC) Count 4.73 mill/uL (4.70-6.10); White Blood Cell (WBC) Count 7.3 thou/uL (4.8-10.8)
== END 2020-03-01 03:15 ==
LOC: ERS 01:48
DX: L03.114 Cellulitis of left upper limb (principal); Z79.899 Other long term (current) drug therapy; Z79.4 Long term (current) use of insulin; I10 Essential (primary) hypertension; N40.0 Benign prostatic hyperplasia without lower urinary tract symptoms; E11.9 Type 2 diabetes mellitus without complications; F17.210 Nicotine dependence, cigarettes, uncomplicated
CPT/HCPCS: 36415; 85025; 99283

== ENCOUNTER 2020-10-18 16:11 | Emergency (ER) | payer OTHER ==
[2020-10-18] MEDS ORDERED: Nitroglycerin 2% Ointment 1 INCH/1 GM Packet ONE (17:19)
[2020-10-18 17:38] LABS: #Basophils 0.1 thou/uL (0.0-0.2); #Eosinphils 0.2 thou/uL (0.0-0.7); #Lymphocytes 2.3 thou/uL (1.20-3.40); #Monocytes 0.6 thou/uL (0.11-0.59); #Neutrophils 2.8 thou/uL (1.40-6.50); %Basophils 1.1 % (0.0-1.0); %Eosinophils 2.7 % (0.0-10.0); %Lymphocytes 38.9 % (21.0-51.0); %Neutrophils 47.3 % (42.0-75.0); Hemoglobin 13.4 g/dL (14.0-18.0); Mean Corpuscular HGB CONC 34.1 g/dL (32.0-36.0); Mean Corpuscular Hemoglobin 28.9 pg (27.0-31.0); Mean Corpuscular Volume 84.9 fL (78.0-98.0); Mean Platelet Volume 6.7 fL (7.4-10.4); Platelet Count 196 thou/uL (130-400); RBC Distribution Width 13.4 % (11.5-14.5); Red Blood Cell (RBC) Count 4.62 mill/uL (4.70-6.10)
[2020-10-18] MEDS ORDERED: Acetaminophen 500 MG TAB ONE (18:01)
[2020-10-18 18:07] LABS: ALT (SGPT) 64 U/L (8-55); AST (SGOT) 82 U/L (5-34); Albumin 3.9 g/dL (3.4-4.8); Alkaline Phosphatase 79 U/L (40-110); Anion Gap 10 mmol/L (10-20); BUN (Urea Nitrogen) 8 mg/dL (8.4-25.7); Bilirubin, Total 0.6 mg/dL (0.2-1.2); Calc. Creatinine Clearance 0 mL/min (70-130); Calcium 9.7 mg/dL (7.8-10.44); Carbon Dioxide 25 mmol/L (23-31); Chloride 95 mmol/L (98-107); Globulin 3.8 g/dL (2.4-3.5); Glucose 101 mg/dL (80-115); Lipase 36 U/L (8-78); Potassium 3.8 mmol/L (3.5-5.1); Protein, Total 7.7 g/dL (5.8-8.1); Sodium 126 mmol/L (136-145)
== END 2020-10-18 18:19 | disposition home or self-care (01) ==
LOC: ERS 16:11
DX: M79.10 Myalgia, unspecified site (principal); Z79.899 Other long term (current) drug therapy; Z79.84 Long term (current) use of oral hypoglycemic drugs; I10 Essential (primary) hypertension; E11.9 Type 2 diabetes mellitus without complications; N40.0 Benign prostatic hyperplasia without lower urinary tract symptoms; F17.210 Nicotine dependence, cigarettes, uncomplicated
CPT/HCPCS: 36415; 71045; 80053; 83690; 84484; 85025; 93005

== ENCOUNTER 2020-12-27 09:37 | Outpatient (CLI) | payer OTHER ==
[2020-12-27 17:43] LABS: SARS-CoV-2 PCR by NAA Not Detected (NotDetected)
== END 2020-12-27 09:38 | disposition home or self-care (01) ==
LOC: LABBT 09:37
PROVIDERS: ATTEND Internal Medicine Hematology & Oncology
DX: Z01.812 Encounter for preprocedural laboratory examination (principal); Z20.822 Contact with and (suspected) exposure to COVID-19
CPT/HCPCS: U0003; U0005

== ENCOUNTER 2021-01-01 08:10 | Day surgery (SDC) | payer OTHER ==
[2020-12-26 13:51] VITALS: BMI 21.7
[2021-01-01 08:51] LABS: PTT 30.4 sec (22.9-36.1); Prothrombin Time 13.4 sec (12.0-14.7)
[2021-01-01 09:52] VITALS: BP 118/74; TEMP 98.8
== END 2021-01-01 13:45 | disposition home or self-care (01) ==
LOC: CT 08:10
PROVIDERS: ATTEND Internal Medicine Hematology & Oncology
PROC: 0FB13ZX Excision of Right Lobe Liver, Percutaneous Approach, Diagnostic (ICD-10-PCS; principal; 2021-01-01)
DX: C78.7 Secondary malignant neoplasm of liver and intrahepatic bile duct (principal); C80.1 Malignant (primary) neoplasm, unspecified; E11.9 Type 2 diabetes mellitus without complications; I10 Essential (primary) hypertension; E78.5 Hyperlipidemia, unspecified; M19.90 Unspecified osteoarthritis, unspecified site; K21.9 Gastro-esophageal reflux disease without esophagitis; F17.210 Nicotine dependence, cigarettes, uncomplicated; F10.11 Alcohol abuse, in remission; F15.11 Other stimulant abuse, in remission; N40.0 Benign prostatic hyperplasia without lower urinary tract symptoms; Z79.84 Long term (current) use of oral hypoglycemic drugs; Z79.899 Other long term (current) drug therapy
CPT/HCPCS: 47000; 77012; 85610; 85730; 88307; 88313; 88333; 88341; 88342

== ENCOUNTER 2021-03-05 11:52 | Outpatient (CLI) | payer OTHER ==
[2021-03-06 08:57] LABS: SARS-CoV-2 PCR by NAA Not Detected (NotDetected)
== END 2021-03-05 11:53 | disposition home or self-care (01) ==
LOC: LABBT 11:52
PROVIDERS: ATTEND Specialist
DX: Z01.818 Encounter for other preprocedural examination (principal); C22.9 Malignant neoplasm of liver, not specified as primary or secondary; Z20.822 Contact with and (suspected) exposure to COVID-19
CPT/HCPCS: 71046; 93005; 93010; U0003; U0005

== ENCOUNTER 2021-03-06 08:11 | Day surgery (SDC) | payer OTHER ==
[2021-03-05 13:27] VITALS: BMI 22.6
[2021-03-06] MEDS ORDERED: Lidocaine 1% MPF 2 ML VIAL ONE (09:21)
[2021-03-06] MEDS ORDERED: Bupivacaine 0.25% HCL 30 ML VIAL ONE (09:29)
[2021-03-06] MEDS ORDERED: Xylocaine 1% w/ Epi 1:100K 10 ML VIAL ONE (09:29)
[2021-03-06] MEDS ORDERED: HYDROmorphone 2 MG/ML VIAL ONE (09:30)
[2021-03-06] MEDS ORDERED: Ketorolac Tromethamine 30 MG/ML VIAL ONE (09:30)
[2021-03-06] MEDS ORDERED: Propofol 500 MG/50 ML VIAL ONE (09:31)
[2021-03-06] MEDS ORDERED: Acetaminophen 500 MG TAB ONE (09:31)
[2021-03-06] MEDS ORDERED: Sodium Chloride 0.9% 10 ML ONE (09:31)
[2021-03-06] MEDS ORDERED: ceFAZolin 2 GM/Dextrose 50 ML IVPB ONE (10:18)
[2021-03-06] MEDS ORDERED: PROPOFOL 200 MG/20 ML VIAL ONE (10:31)
[2021-03-06] MEDS ORDERED: Lidocaine 1% PF 5 ML VIAL ONE (10:31)
[2021-03-06] MEDS ORDERED: Dexamethasone 20 MG/5 ML VIAL ONE (10:31)
[2021-03-06] MEDS ORDERED: ePHEDrine 50 MG/ML VIAL ONE (10:31)
== END 2021-03-06 12:15 | disposition home or self-care (01) ==
LOC: SDC 08:11
PROVIDERS: ATTEND Specialist
PROC: 0JH60WZ Insertion of Totally Implantable Vascular Access Device into Chest Subcutaneous Tissue and Fascia, Open Approach (ICD-10-PCS; principal; 2021-03-06)
PROC: 02HV33Z Insertion of Infusion Device into Superior Vena Cava, Percutaneous Approach (ICD-10-PCS; principal; 2021-03-06)
DX: C78.7 Secondary malignant neoplasm of liver and intrahepatic bile duct (principal); F17.210 Nicotine dependence, cigarettes, uncomplicated; K21.9 Gastro-esophageal reflux disease without esophagitis; E11.9 Type 2 diabetes mellitus without complications; M19.90 Unspecified osteoarthritis, unspecified site; F10.11 Alcohol abuse, in remission; F19.11 Other psychoactive substance abuse, in remission; Z79.84 Long term (current) use of oral hypoglycemic drugs; Z79.899 Other long term (current) drug therapy
CPT/HCPCS: 71045; C1788; J0690; J1100; J1170; J1642; J1885; J2704; J3490; S0020

== ENCOUNTER 2021-06-17 07:32 | Inpatient (IN) | payer OTHER ==
[2021-06-17] MEDS ORDERED: Morphine 4 MG/ML VIAL ONE (08:11)
[2021-06-17] MEDS ORDERED: Ondansetron PF 4 MG/2 ML Vial ONE (08:11)
[2021-06-17 08:26] LABS: #Eosinphils 0.1 thou/uL (0.0-0.7); #Lymphocytes 1.9 thou/uL (1.20-3.40); #Monocytes 0.1 thou/uL (0.11-0.59); #Neutrophils 2.6 thou/uL (1.40-6.50); %Basophils 0.4 % (0.0-1.0); %Eosinophils 1.2 % (0.0-10.0); %Lymphocytes 40.3 % (21.0-51.0); %Monocytes 1.4 % (0.0-10.0); %Neutrophils 56.7 % (42.0-75.0); Mean Corpuscular HGB CONC 33.2 g/dL (32.0-36.0); Mean Corpuscular Hemoglobin 32.9 pg (27.0-31.0); Mean Corpuscular Volume 99.2 fL (78.0-98.0); Mean Platelet Volume 8.2 fL (7.4-10.4); Platelet Count 125 thou/uL (130-400); RBC Distribution Width 17.2 % (11.5-14.5); Red Blood Cell (RBC) Count 3.35 mill/uL (4.70-6.10); White Blood Cell (WBC) Count 4.7 thou/uL (4.8-10.8)
[2021-06-17 08:49] LABS: ALT (SGPT) 40 U/L (8-55); AST (SGOT) 50 U/L (5-34); Albumin 3.5 g/dL (3.4-4.8); Alkaline Phosphatase 85 U/L (40-110); Anion Gap 15 mmol/L (10-20); BUN (Urea Nitrogen) 9 mg/dL (8.4-25.7); Bilirubin, Total 0.4 mg/dL (0.2-1.2); CK (CPK) 32 U/L (30-200); Calc. Creatinine Clearance 0 mL/min (70-130); Calcium 9.5 mg/dL (7.8-10.44); Carbon Dioxide 23 mmol/L (23-31); Chloride 101 mmol/L (98-107); Globulin 3.8 g/dL (2.4-3.5); Glucose 72 mg/dL (80-115); Lipase 31 U/L (8-78); Magnesium 1.5 mg/dL (1.6-2.6); Potassium 4.5 mmol/L (3.5-5.1); Protein, Total 7.3 g/dL (5.8-8.1); Sodium 134 mmol/L (136-145)
[2021-06-17] MEDS ORDERED: metroNIDAZOLE 500 MG/100 ML BAG ONE (10:54)
[2021-06-17] MEDS ORDERED: HYDROcodone/Acetaminophen 5/325 mg Tablet PO PRN (11:34)
[2021-06-17] MEDS ORDERED: Senokot S 8.6-50 MG TAB PO PRN (11:34)
[2021-06-17] MEDS ORDERED: Acetaminophen 325 MG TAB PO PRN (11:34)
[2021-06-17] MEDS ORDERED: Loperamide HCl 2 MG CAP PO PRN (11:34)
[2021-06-17] MEDS ORDERED: Dextrose 5% in Water 1,000 ML IV PRN (12:44)
[2021-06-17] MEDS ORDERED: hydrALAZINE 20 MG/ML VIAL SLOW IVP PRN (12:44)
[2021-06-17] MEDS ORDERED: Dextrose 50% Abboject 50 ML SYRINGE SLOW IVP PRN (12:44)
[2021-06-17] MEDS ORDERED: HumaLOG 300 UNITS/3 ML VIAL SC PRN (12:44)
[2021-06-17] MEDS: Sodium Chloride 0.9% 1,000 ML IV SCH ×2 (13:54→23:50)
[2021-06-17] MEDS: Morphine ER 15 MG TAB PO PRN (16:08)
[2021-06-17] MEDS: Ondansetron PF 4 MG/2 ML Vial IVP PRN (16:12)
[2021-06-17] MEDS: Aluminum & Magnesium Hydroxide 60 ML, diphenhydrAMINE 150 MG, Lidocaine 2% Viscous Solu... SSW SCH ×2 (16:37→21:25)
[2021-06-17] MEDS: metroNIDAZOLE 500 MG in Premix Bag 1 BAG IVPB SCH ×2 (17:51→23:25)
[2021-06-17] MEDS: HYDROcodone/Acetaminophen 10/325 mg Tablet PO PRN ×2 (18:02→23:24)
[2021-06-17] MEDS ORDERED: Magnesium 2 GM/50 ML(in water) 2 GM in Premix Bag 1 BAG IVPB SCH (18:45)
[2021-06-17] MEDS: Dicyclomine 20 MG TAB PO PRN (19:44)
[2021-06-17] MEDS ORDERED: Famotidine/PF 20 mg/2ml Vial SLOW IVP SCH (21:00)
[2021-06-17] MEDS: Gabapentin 100 MG CAP PO SCH (21:24)
[2021-06-18 00:51] LABS: SARS-CoV-2 PCR by NAA Not Detected (NotDetected)
[2021-06-18] MEDS: Morphine ER 15 MG TAB PO PRN (04:37)
[2021-06-18] MEDS: Dicyclomine 20 MG TAB PO PRN (04:37)
[2021-06-18] MEDS: Sodium Chloride 0.9% 1,000 ML IV SCH ×2 (04:39→18:02)
[2021-06-18] MEDS: metroNIDAZOLE 500 MG in Premix Bag 1 BAG IVPB SCH ×4 (05:17→23:42)
[2021-06-18] MEDS: HYDROcodone/Acetaminophen 10/325 mg Tablet PO PRN ×4 (05:17→17:56)
[2021-06-18 05:29] LABS: #Basophils 0.1 thou/uL (0.0-0.2); #Lymphocytes 1.3 thou/uL (1.20-3.40); #Monocytes 0.1 thou/uL (0.11-0.59); #Neutrophils 2.2 thou/uL (1.40-6.50); %Basophils 1.8 % (0.0-1.0); %Eosinophils 0.9 % (0.0-10.0); %Lymphocytes 36.5 % (21.0-51.0); %Monocytes 1.9 % (0.0-10.0); %Neutrophils 58.9 % (42.0-75.0); Hemoglobin 9.4 g/dL (14.0-18.0); Mean Corpuscular HGB CONC 32.6 g/dL (32.0-36.0); Mean Corpuscular Hemoglobin 31.9 pg (27.0-31.0); Mean Platelet Volume 8.8 fL (7.4-10.4); Platelet Count 87 thou/uL (130-400); RBC Distribution Width 17.3 % (11.5-14.5); Red Blood Cell (RBC) Count 2.95 mill/uL (4.70-6.10); White Blood Cell (WBC) Count 3.7 thou/uL (4.8-10.8)
[2021-06-18 05:34] LABS: Anion Gap 12 mmol/L (10-20); BUN (Urea Nitrogen) 5 mg/dL (8.4-25.7); Calc. Creatinine Clearance 107 mL/min (70-130); Calcium 9.2 mg/dL (7.8-10.44); Carbon Dioxide 24 mmol/L (23-31); Chloride 106 mmol/L (98-107); Glucose 69 mg/dL (80-115); Magnesium 1.8 mg/dL (1.6-2.6); Potassium 4.5 mmol/L (3.5-5.1); Sodium 137 mmol/L (136-145)
[2021-06-18] MEDS: Aluminum & Magnesium Hydroxide 60 ML, diphenhydrAMINE 150 MG, Lidocaine 2% Viscous Solu... SSW SCH ×4 (06:44→23:06)
[2021-06-18] MEDS: Gabapentin 100 MG CAP PO SCH ×3 (08:32→23:06)
[2021-06-18] MEDS: Enoxaparin Sodium 40 MG/0.4 ML SYRINGE SC SCH (08:33)
[2021-06-18] MEDS: metFORMIN 500 MG TAB PO SCH (08:33)
[2021-06-18] MEDS: Losartan 25 MG TAB PO SCH (08:33)
[2021-06-18 14:12] VITALS: BMI 21.9
[2021-06-18] MEDS: Ondansetron PF 4 MG/2 ML Vial IVP PRN (19:26)
[2021-06-19] MEDS: Sodium Chloride 0.9% 1,000 ML IV SCH ×3 (02:25→23:59)
[2021-06-19] MEDS: metroNIDAZOLE 500 MG in Premix Bag 1 BAG IVPB SCH ×4 (05:24→23:49)
[2021-06-19] MEDS: Dicyclomine 20 MG TAB PO PRN (05:48)
[2021-06-19] MEDS: Morphine ER 15 MG TAB PO PRN ×2 (05:51→21:07)
[2021-06-19] MEDS: HYDROcodone/Acetaminophen 10/325 mg Tablet PO PRN ×2 (08:52→13:04)
[2021-06-19] MEDS: Losartan 25 MG TAB PO SCH (08:56)
[2021-06-19] MEDS: Gabapentin 100 MG CAP PO SCH ×3 (08:56→21:08)
[2021-06-19] MEDS: Enoxaparin Sodium 40 MG/0.4 ML SYRINGE SC SCH (09:18)
[2021-06-19] MEDS: metFORMIN 500 MG TAB PO SCH (09:18)
[2021-06-19 09:27] LABS: #Neutrophils 2.2 thou/uL (1.40-6.50); %Basophils 0.7 % (0.0-1.0); %Eosinophils 0.4 % (0.0-10.0); %Lymphocytes 30.2 % (21.0-51.0); %Neutrophils 67.7 % (42.0-75.0); Hemoglobin 10.4 g/dL (14.0-18.0); Mean Corpuscular HGB CONC 32.4 g/dL (32.0-36.0); Mean Corpuscular Hemoglobin 31.5 pg (27.0-31.0); Mean Corpuscular Volume 97.5 fL (78.0-98.0); Mean Platelet Volume 8.8 fL (7.4-10.4); Platelet Count 71 thou/uL (130-400); RBC Distribution Width 16.8 % (11.5-14.5); Red Blood Cell (RBC) Count 3.28 mill/uL (4.70-6.10); White Blood Cell (WBC) Count 3.3 thou/uL (4.8-10.8)
[2021-06-19 09:47] LABS: Anion Gap 13 mmol/L (10-20); BUN (Urea Nitrogen) Less than 4 mg/dL (8.4-25.7); Calc. Creatinine Clearance 104 mL/min (70-130); Calcium 9.3 mg/dL (7.8-10.44); Carbon Dioxide 24 mmol/L (23-31); Chloride 101 mmol/L (98-107); Glucose 74 mg/dL (80-115); Potassium 3.9 mmol/L (3.5-5.1); Sodium 134 mmol/L (136-145)
[2021-06-19] MEDS ORDERED: Scopolamine 1.5 mg/72 hour Patch TD SCH (12:30)
[2021-06-19] MEDS ORDERED: Amlodipine 5 MG TAB PO SCH (12:30)
[2021-06-19] MEDS: Aluminum & Magnesium Hydroxide 60 ML, diphenhydrAMINE 150 MG, Lidocaine 2% Viscous Solu... SSW SCH ×3 (12:41→21:09)
[2021-06-19] MEDS: Nicotine 21 MG PATCH TD SCH (15:55)
[2021-06-19] MEDS: Ondansetron PF 4 MG/2 ML Vial IVP PRN (16:02)
[2021-06-20] MEDS: HYDROcodone/Acetaminophen 10/325 mg Tablet PO PRN ×3 (00:02→20:32)
[2021-06-20] MEDS: Dicyclomine 20 MG TAB PO PRN (02:01)
[2021-06-20] MEDS: metroNIDAZOLE 500 MG in Premix Bag 1 BAG IVPB SCH (04:41)
[2021-06-20 05:53] LABS: Anion Gap 12 mmol/L (10-20); BUN (Urea Nitrogen) Less than 4 mg/dL (8.4-25.7); Calc. Creatinine Clearance 96 mL/min (70-130); Calcium 9.1 mg/dL (7.8-10.44); Carbon Dioxide 25 mmol/L (23-31); Chloride 101 mmol/L (98-107); Glucose 69 mg/dL (80-115); Potassium 3.9 mmol/L (3.5-5.1); Sodium 134 mmol/L (136-145)
[2021-06-20 06:02] LABS: Hemoglobin 9.6 g/dL (14.0-18.0); Hypochromia SLIGHT = 6-15 cells (100X) (0-5/hpf); Lymphocytes 36 % (21-51); MDiff Complete? YES; Mean Corpuscular Hemoglobin 32.1 pg (27.0-31.0); Mean Corpuscular Volume 97.2 fL (78.0-98.0); Mean Platelet Volume 9.6 fL (7.4-10.4); Monocytes 16 % (0-10); Neutrophil 44 % (42-75); Platelet Count 51 thou/uL (130-400); Platelet Morphology Comment Appears Decreased; RBC Distribution Width 16.9 % (11.5-14.5); Reactive Lymphocytes 4 % (0-10); Red Blood Cell (RBC) Count 2.99 mill/uL (4.70-6.10); White Blood Cell (WBC) Count 1.2 thou/uL (4.8-10.8)
[2021-06-20] MEDS: Aluminum & Magnesium Hydroxide 60 ML, diphenhydrAMINE 150 MG, Lidocaine 2% Viscous Solu... SSW SCH ×4 (08:17→19:40)
[2021-06-20] MEDS: metFORMIN 500 MG TAB PO SCH (08:18)
[2021-06-20] MEDS: Amlodipine 10 MG TAB PO SCH (08:24)
[2021-06-20] MEDS: Gabapentin 100 MG CAP PO SCH ×3 (08:24→20:32)
[2021-06-20] MEDS: Calcium Carbonate 500 MG ChewTAB PO PRN ×2 (08:25→20:32)
[2021-06-20] MEDS ORDERED: Piperacillin/Tazobactam 3.375 GM in Sodium Chloride 0.9% 100 ML IVPB SCH ×2 (10:00→12:00)
[2021-06-20] MEDS: Sodium Chloride 0.9% 1,000 ML IV SCH ×2 (10:53→19:39)
[2021-06-20] MEDS: Piperacillin/Tazobactam 3.375 GM in Sodium Chloride 0.9% 100 ML IVPB SCH ×2 (15:23→19:40)
[2021-06-20] MEDS: Nicotine 21 MG PATCH TD SCH (15:36)
[2021-06-20] MEDS: Morphine ER 15 MG TAB PO PRN (15:36)
[2021-06-21] MEDS: HYDROcodone/Acetaminophen 10/325 mg Tablet PO PRN (01:17)
[2021-06-21] MEDS: Piperacillin/Tazobactam 3.375 GM in Sodium Chloride 0.9% 100 ML IVPB SCH (05:07)
[2021-06-21] MEDS: Sodium Chloride 0.9% 1,000 ML IV SCH (05:07)
[2021-06-21 05:47] LABS: Anion Gap 13 mmol/L (10-20); BUN (Urea Nitrogen) 4 mg/dL (8.4-25.7); Calc. Creatinine Clearance 92 mL/min (70-130); Calcium 9.2 mg/dL (7.8-10.44); Carbon Dioxide 26 mmol/L (23-31); Chloride 101 mmol/L (98-107); Glucose 96 mg/dL (80-115); Sodium 136 mmol/L (136-145)
[2021-06-21 05:49] LABS: Band 1 % (5-11); Hemoglobin 9.7 g/dL (14.0-18.0); Lymphocytes 69 % (21-51); MDiff Complete? YES; Mean Corpuscular HGB CONC 33.7 g/dL (32.0-36.0); Mean Corpuscular Volume 97.8 fL (78.0-98.0); Mean Platelet Volume 10.6 fL (7.4-10.4); Monocytes 8 % (0-10); Neutrophil 22 % (42-75); Platelet Count 37 thou/uL (130-400); Platelet Morphology Comment Appears Decreased; RBC Distribution Width 16.8 % (11.5-14.5); RBC Morphology Normal; Red Blood Cell (RBC) Count 2.93 mill/uL (4.70-6.10)
[2021-06-21 09:18] VITALS: BP 118/80; TEMP 99
[2021-06-21] MEDS: Dicyclomine 20 MG TAB PO PRN (09:19)
[2021-06-21] MEDS: Morphine ER 15 MG TAB PO PRN (09:19)
[2021-06-21] MEDS: metFORMIN 500 MG TAB PO SCH (09:19)
[2021-06-21] MEDS: Amlodipine 10 MG TAB PO SCH (09:20)
[2021-06-21] MEDS: Gabapentin 100 MG CAP PO SCH (09:20)
== END 2021-06-21 12:56 | disposition home or self-care (01) | DRG 391 ==
LOC: ERS 07:32 → MSONC 11:22
PROVIDERS: ADMIT Internal Medicine; ATTEND Internal Medicine
DX: K57.32 Diverticulitis of large intestine without perforation or abscess without bleeding (principal); Z20.822 Contact with and (suspected) exposure to COVID-19; Z51.5 Encounter for palliative care; D61.810 Antineoplastic chemotherapy induced pancytopenia; D61.818 Other pancytopenia; E87.1 Hypo-osmolality and hyponatremia; C22.8 Malignant neoplasm of liver, primary, unspecified as to type; K52.9 Noninfective gastroenteritis and colitis, unspecified; T45.1X5A Adverse effect of antineoplastic and immunosuppressive drugs, initial encounter; E11.9 Type 2 diabetes mellitus without complications; I10 Essential (primary) hypertension; N40.0 Benign prostatic hyperplasia without lower urinary tract symptoms; F17.210 Nicotine dependence, cigarettes, uncomplicated; E16.2 Hypoglycemia, unspecified; M19.90 Unspecified osteoarthritis, unspecified site; E78.5 Hyperlipidemia, unspecified; K21.9 Gastro-esophageal reflux disease without esophagitis; E86.0 Dehydration; Z87.442 Personal history of urinary calculi; Z79.84 Long term (current) use of oral hypoglycemic drugs; Z79.899 Other long term (current) drug therapy; Z90.49 Acquired absence of other specified parts of digestive tract; Z86.19 Personal history of other infectious and parasitic diseases; Z98.890 Other specified postprocedural states
CPT/HCPCS: 36415; 36416; 74177; 80048; 80053; 82274; 82550; 83630; 83690; 83735; 85025; 87045; 87046; 87324; 87427; 87449; 96374; 96375; J0360; J0744; J1642; J1956; J2270; J2405; J3475; J7050; Q0163; U0003; U0005